=== PATIENT | female | born 1950 | race Caucasian/White ===

== ENCOUNTER 2022-09-23 09:25 | Day surgery (SDC) | payer OTHER, MEDICARE ==
[2022-09-22 15:48] VITALS: BMI 33.9
[~2022-09-23 09:25] MED LIST: LACTATED RINGERS SOLUTION 1,000 ML IV SCH; ONDANSETRON 4 MG/2 ML VIAL IVPUSH PRN; oxyCODONE HCL 5 MG TABLET PO PRN
[2022-09-23] MEDS ORDERED: PROPOFOL 20 ML ONE ×2 (10:03→10:04)
[2022-09-23] MEDS ORDERED: MIDAZOLAM HCL 2 MG/2 ML SINGLE DOSE VIAL ONE (10:23)
[2022-09-23] MEDS ORDERED: ROPIVACAINE HCL 0.5% 30ML VIAL ONE (10:34)
[2022-09-23] MEDS ORDERED: ePHEDrine SULFATE 50 MG/1 ML AMPULE ONE (11:29)
[2022-09-23] MEDS ORDERED: PHENYLEPHRINE HCL 10 MG/1 ML SINGLE DOSE VIAL ONE (11:35)
[2022-09-23] MEDS ORDERED: ACETAMINOPHEN 1000 MG/100 ML BAG IVPB ONE (13:38)
[2022-09-23] MEDS ORDERED: ONDANSETRON 4 MG/2 ML VIAL IVPUSH PRN (14:00)
[2022-09-23] MEDS ORDERED: PROMETHAZINE HCL 25 MG/1 ML VIAL IVPB PRN (14:00)
[2022-09-23] MEDS ORDERED: ACETAMINOPHEN 1000 MG/100 ML BAG IVPB PRN (14:03)
[2022-09-23] MEDS ORDERED: traMADol HCL 50 MG TABLET PO PRN (14:04)
[2022-09-23 16:02] VITALS: RESP 17; TEMP 97.8
[2022-09-23 16:20] VITALS: BP 126/70; PULSE 95
[2022-09-23] MEDS ORDERED: KETOROLAC TROMETHAMINE 30 MG/1 ML VIAL IVPUSH SCH (18:00)
[2022-09-25 19:14] LABS: HIV INTERPRETATION NEGATIVE (NEGATIVE)
== END 2022-09-23 16:00 | disposition home or self-care (01) ==
LOC: FASU 09:25
PROVIDERS: ATTEND Orthopaedic Surgery Hand Surgery
PROC: 0RPP04Z Removal of Internal Fixation Device from Left Wrist Joint, Open Approach (ICD-10-PCS; 2022-09-23)
PROC: 0RGP07Z Fusion of Left Wrist Joint with Autologous Tissue Substitute, Open Approach (ICD-10-PCS; principal; 2022-09-23 11:31)
DX: M19.032 Primary osteoarthritis, left wrist (principal); T84.123A Displacement of internal fixation device of bone of left forearm, initial encounter; Y79.1 Therapeutic (nonsurgical) and rehabilitative orthopedic devices associated with adverse incidents; Y92.9 Unspecified place or not applicable
CPT/HCPCS: 25251; 25810; C1713; 36415; 73110-TC-LT-FY; 84460; 86803; 87070; 87186; 87205; 87340; 87389; 88300-TC; 94760